=== PATIENT | female | born 1980 | race African-American/Black ===

== ENCOUNTER 2017-11-12 09:25 | Day surgery (SDC) | payer OTHER, SELFPAY ==
[2017-11-11 10:13] VITALS: BMI 30.2
[2017-11-12] MEDS: LACTATED RINGERS 1,000 ML 42 ML IV (09:40)
[2017-11-12 09:43] VITALS: BP 133/76; PULSE 65; RESP 16; TEMP 36.6; O2SAT 100; BMI 30.2
[2017-11-12] MEDS: CEFAZOLIN 2 GM/100 ML FROZ.PIGGY IV (10:43)
--- NOTE | 2017-11-12 10:47 | PM.PREOP ---
Pre-operative Note Interval Note Pre-op Check: Yes History & Physical Reviewed by Physician and Yes Exam Performed Changes: No
--- NOTE | 2017-11-12 11:04 | SUR.OPER ---
Supine on padded OR bed, head on pillow, arms secured on padded arm boards at <90 degrees abduction, legs uncrossed, safety belt at thigh, tape over blanket over lower legs.
[2017-11-12] MEDS: BUPIVACAINE 0.25% (PF) VIAL 30 ML INJ (11:12)
[2017-11-12 11:34] VITALS: BP 101/72; PULSE 65; RESP 15; TEMP 36.2; O2SAT 95
[2017-11-12 11:39] VITALS: BP 117/82; PULSE 73; RESP 13; O2SAT 99
--- NOTE | 2017-11-12 11:40 | P.OP_ITS ---
Operative Date/Time/Diagnoses Date of procedure: 11/12/17 Time of procedure: 11:00 Pre-op diagnosis: Right carpal tunnel syndrome Post-op diagnosis: same Procedure & Clinicians Procedure: Open right carpal tunnel release Same procedure as scheduled: Yes Indications: 37-year-old female with 6 months of pain in the median nerve distribution and numbness. Nerve conduction studies showed motor changes and on examination there is weakness in APB. Her pain did not respond to long course of splinting and she desired operative management. We discussed the risks to include pain, bleeding, infection, lack of symptom relief, damage to the motor branch of the median nerve as well as the sensory branch, damage to neurovascular structures. I discussed with her that she would not improve her APB strength but we should be able to prevent further weakness. Written consent was obtained. Surgeon: Josep [employer] Worker: Burton Ferguson Anesthesia Type: General and Local Operative Notes Findings: Thickened transverse carpal ligament which was transected Closure Type: primary Estimated Blood Loss (mL): 2 Blood products transfused: none Tourniquet time (min): 8 Procedure in detail: The patient was met in the preop hold area and that in the procedure. Operative extremity was signed. Consent was verified. She desired to proceed. She was brought to the operating room and surrendered anesthesia. Once general anesthesia been obtained she was placed in the supine position all bony prominences were well padded. She was then prepped and draped in the standard sterile fashion. A surgical time-out was held where we confirmed the patient procedure, identity, allergies, images, antibiotics. All were in agreement we proceeded. An Esmarch was used to exsanguinate the limb and the tourniquet was elevated 200 mm of mercury. A 3 cm incision was made on the ulnar aspect of the ring finger starting distally at Manzano's cardinal line. The of the hamate was ulnar to this and palmaris longus was radial to this. I used her hypothenar crease for the majority of the incision. Sharp dissection was brought down to and through the palmar aponeurosis and then down to the transverse carpal ligament. Long tenotomy scissor used to create a pocket proximally and a Ragnell was placed. The knife was used to transect the transverse carpal ligament layer by layer. Once completely through there was a small amount left proximally. I slid the long tenotomies on the underside of the ligament to free any adherent structures. I then pointed the tips ulnar opened then slightly and completed the transection into the antebrachial fascia. I then moved to a Ragnell distally and retracted the skin and the fat. Identified the distal portion of the transverse carpal ligament and incised with a knife. A [place]ira elevator was placed into the carpal tunnel proximally to ensure complete release and then also distally and no adherent bands were felt. I then irrigated the wound copiously and dropped the tourniquet while holding pressure. After waiting 3 min bipolar electrocautery was used to control bleeding. The skin was closed with 4 0 nylon in a horizontal mattress fashion. 3 cc of 0.25% Marcaine plain were injected around the wound. A sterile bandage was placed. She was awakened and transferred to the recovery room. Complications: none Condition: stable Disposition: same day surgery Plan for aftercare: Dressing on until 2 weeks. Do not submerge the wound for 4 weeks. Slowly resume activity after that.
[2017-11-12 11:44] VITALS: BP 116/77; PULSE 57; RESP 14; O2SAT 99
[2017-11-12 11:47] VITALS: BP 98/64; PULSE 60; RESP 10; TEMP 36.3; O2SAT 98
[2017-11-12 12:06] VITALS: BP 100/66; PULSE 52; RESP 8; TEMP 36.3; O2SAT 98
[2017-11-12] MEDS: OXYCODONE/ACETAMINOPHEN 5/325 TABLET 1 TAB PO ×2 (12:14→12:28)
--- NOTE | 2017-11-12 12:17 | SUR.PHASEII ---
waiting on friend to go over discharge instructions and drive her home.
== END 2017-11-12 12:38 | disposition home or self-care (01) ==
PROVIDERS: Visit Provider Orthopaedic Surgery
PROC: (CPT 64721; principal; 2017-11-12 10:45)
DX: G56.01 Carpal tunnel syndrome, right upper limb (principal)
CPT/HCPCS: 64721; J0690; J1100; J2405; J2704; J3010